=== PATIENT | male | born 1975 | race Caucasian/White ===

== ENCOUNTER 2018-04-04 10:08 | Outpatient (CLI) | payer OTHER ==
--- NOTE | 2018-04-04 10:53 | RAD ---
PA AND LATERAL CHEST: History: Cough. FINDINGS: Heart size and mediastinum within normal limits. The lungs are clear of infiltrates. No significant b kailey findings. IMPRESSION: No active intrathoracic disease. POS: [facility]
== END 2018-04-04 10:09 | disposition home or self-care (01) ==
LOC: RAD-FRANK 10:08
PROVIDERS: ATTEND Nurse Practitioner Family
DX: R05 Cough (principal)
CPT/HCPCS: 71046

== ENCOUNTER 2023-01-11 11:18 | Outpatient (CLI) | payer OTHER | END 2023-01-11 11:19 | disposition home or self-care (01) | LOC: SCSRAD 11:18 | PROVIDERS: ATTEND Nurse Practitioner Family | DX: R07.81 Pleurodynia (principal) ==